=== PATIENT | female | born 1960 | race Caucasian/White ===

== ENCOUNTER → 2018-07-01 | Outpatient (CLI) | payer BC ==
[~2018-07-01] MED LIST: CAL PO; COLACE100 MG PO; HYDROCODON-ACE1 EA12 PO; IBUPROFEN400 MG PO; LEVOTHYROXINE88 MCG PO; MEDROL4 MG/DOSE-; MOBIC7.5 MG PO; MULTIVITAMIN PO; PERCOCET PO; SYNTHROID75 MCG; THERA TEARS PO; [UNRECOGNIZED DRUG - OTHER] PO
--- NOTE | 2018-07-17 09:04 | Diagnostic Imaging Report ---
#[id number] - [id number] #BILATERAL DIGITAL SCREENING MAMMOGRAM WITH CAD: 07/01/2018 CLINICAL: Routine screening. Comparison is made to exams dated: 12/29/2016 mammogram and 11/26/2015 mammogram - [facility]. Current study contains 5 films. The tissue of both breasts is extremely dense, which lowers the sensitivity of mammography. Current study was also evaluated with a Computer Aided Detection (CAD) system. There is a benign calcification in the right breast. No significant masses, calcifications, or other findings are seen in either breast. There has been no significant interval change. IMPRESSION: BENIGN There is no mammographic evidence of malignancy. A 1 year screening mammogram is recommended. The patient will be notified by letter of the results. Jimmy Colmenares Jr., D.O. cw/:07/16/2018 13:05:41 Registered Travel Nurse: Kalyn CHUNG(R)([place]), [facility] letter sent: Compared to Prior B9 Mammogram BI-RADS: 2 Benign
== END ==
LOC: MAMMO 08:06
PROVIDERS: ATTEND Obstetrics & Gynecology
DX: Z12.31 Encounter for screening mammogram for malignant neoplasm of breast (principal)
CPT/HCPCS: 77067

== ENCOUNTER → 2018-08-21 | Outpatient (CLI) | payer BC ==
--- NOTE | 2018-08-21 11:59 | Diagnostic Imaging Report ---
PROCEDURE:HAND BILATERAL 3 OR MORE VIEWS INDICATION:Pain COMPARISON:None. FINDINGS:No fractures or dislocation. There is no evidence of abnormal soft tissue calcification. There are no bony erosions. CONCLUSION:Normal study. Jimmy Colmenares D.O. Dictated by: Jimmy Colmenares D.O. on 08/21/2018 at 12:08 Electronically approved by: Jimmy Colmenares D.O. on 08/21/2018 at 12:08
== END ==
LOC: RAD 08:01
PROVIDERS: ATTEND Internal Medicine Rheumatology
DX: M25.542 Pain in joints of left hand (principal); M25.541 Pain in joints of right hand

== ENCOUNTER → 2019-07-30 | Outpatient (CLI) | payer BC | LOC: MAMMO 16:16 | PROVIDERS: ATTEND Obstetrics & Gynecology | DX: Z12.31 Encounter for screening mammogram for malignant neoplasm of breast (principal) | CPT/HCPCS: 77067 ==

== ENCOUNTER → 2020-08-02 | Outpatient (CLI) | payer BC | LOC: MAMMO 07:49 | PROVIDERS: ATTEND Obstetrics & Gynecology | DX: Z12.31 Encounter for screening mammogram for malignant neoplasm of breast (principal) | CPT/HCPCS: 77067 ==

== ENCOUNTER → 2021-08-08 | Outpatient (CLI) | payer BC | LOC: MAMMO 07:41 | PROVIDERS: ATTEND Obstetrics & Gynecology | DX: Z12.31 Encounter for screening mammogram for malignant neoplasm of breast (principal) | CPT/HCPCS: 77067 ==

== ENCOUNTER → 2022-08-09 | Outpatient (CLI) | payer BC | LOC: MAMMO 07:33 | PROVIDERS: ATTEND Obstetrics & Gynecology | DX: Z12.31 Encounter for screening mammogram for malignant neoplasm of breast (principal) | CPT/HCPCS: 77067 ==

== ENCOUNTER → 2024-08-20 | Outpatient (REF) | payer BC | LOC: MAMMO 07:46 | PROVIDERS: ATTEND Obstetrics & Gynecology | DX: Z12.31 Encounter for screening mammogram for malignant neoplasm of breast (principal) | CPT/HCPCS: 77067 ==

== ENCOUNTER → 2025-03-03 | Outpatient (REF) | payer BC | LOC: DX 14:30 | PROVIDERS: ATTEND Obstetrics & Gynecology | DX: M85.88 Other specified disorders of bone density and structure, other site (principal) | CPT/HCPCS: 77080 ==

== ENCOUNTER 2025-04-02 05:59 | Observation (INO) | payer BC ==
[2025-03-31 16:07] LABS: BASOPHILS % 0.8 % (0.0-1.0); EOSINOPHILS % 0.8 % (0.0-6.0); LYMPHOCYTES % 22.3 % (18.0-39.1); MONOCYTES % 8.7 % (4.4-11.3); NEUTROPHILS % 67.2 % (38.7-80.0); RED CELL DISTRIBUTION WIDTH 12.1 % (11.7-14.4)
[2025-03-31 16:32] LABS: EST GLOMERULAR FILTRATION RATE 62.0 ML/MIN (>=60)
[2025-03-31 16:42] LABS: INR 0.87
[~2025-04-02 05:59] MED LIST changes: +AMLODIPINE BESY10 MG PO; +BIOTIN1 MG PO; +CALCIUM D3 PO; +FLECTOR1 EACH PO; +HELIOCARE240 MG PO; +LYRICA25 MG PO; +MAGNESIUM CITRA PO; +POTASSIUM CITR10 MEQ PO; +WELLBUTRIN XL150 MG PO
[2025-04-02] MEDS ORDERED: ULTRAM 50MG50 MG PO ×2 (07:15→09:09)
[2025-04-02] MEDS ORDERED: PROPOFOL IV EMULSION 10 MG/ML 20 ML VIAL ONE (07:22)
[2025-04-02] MEDS ORDERED: ROCURONIUM BROMIDE 1 ML IV ONE (07:22)
[2025-04-02] MEDS ORDERED: MIDAZOLAM HCL 2 MG/2 ML VIAL ONE (07:22)
[2025-04-02] MEDS ORDERED: ACETAMINOPHEN 1000 MG/100 ML 100 ML IV ONE (07:22)
[2025-04-02] MEDS ORDERED: LIDOCAINE HCL 2% LOCAL INJ 5 ML SDV VIAL INJ ONE (07:22)
[2025-04-02] MEDS ORDERED: FENTANYL CITRATE/PF 100MCG/2 ML INJ ONE (07:22)
[2025-04-02] MEDS ORDERED: SEVOFLURANE INHAL SOLN 250 ML PEN BTL ONE (07:22)
[2025-04-02] MEDS ORDERED: FAMOTIDINE 20 MG/2 ML VIAL IV ONE (07:24)
[2025-04-02] MEDS: CEFAZOLIN SODIUM 2 GM ONE (07:51)
[2025-04-02] MEDS: LACTATED RINGER'S 1,000 ML ONE (07:51)
[2025-04-02] MEDS ORDERED: DEXAMETHASONE SOD PHOS INJ 4 MG/ML SDV ONE (08:46)
[2025-04-02] MEDS ORDERED: SUGAMMADEX SODIUM 200 MG/2 ML VIAL IV ONE (08:46)
[2025-04-02] MEDS ORDERED: EPHEDRINE SULFATE INJ 50 MG/ML VIAL ONE (08:46)
[2025-04-02] MEDS ORDERED: ONDANSETRON HCL INJ 2MG/ML 2ML 2 MG/ML VIAL ONE (08:46)
[2025-04-02] MEDS ORDERED: MAGNESIUM/ALUMINUM/SIMETHICONE 30 ML UDC PO PRN (09:15)
[2025-04-02] MEDS ORDERED: ACETAMINOPHEN 325 MG TAB PO PRN (09:15)
[2025-04-02] MEDS ORDERED: CARISOPRODOL 350 MG TAB PO PRN (09:15)
[2025-04-02] MEDS ORDERED: OXYCODONE/ACETAMINOPHEN 5-325 1 EACH TABLET PO PRN (09:15)
[2025-04-02] MEDS ORDERED: Morphine 2mg Syringe 2 MG/ML SYR IV PRN (09:15)
[2025-04-02] MEDS ORDERED: PROMETHAZINE HCL (IM) 25 MG/ML VIAL IM PRN (09:15)
[2025-04-02] MEDS ORDERED: ONDANSETRON HCL INJ 2MG/ML 2ML 2 MG/ML VIAL IV PRN (09:15)
[2025-04-02] MEDS: FENTANYL CITRATE/PF 100MCG/2 ML INJ ONE (09:25)
[2025-04-02 11:05] VITALS: BP 121/70; PULSE 63; RESP 18; O2SAT 99
[2025-04-02] MEDS ORDERED: LACTATED RINGER'S 1,000 ML IV SCH (14:30)
[2025-04-02] MEDS ORDERED: ZOLPIDEM TARTRATE 5 MG TAB PO PRN (21:00)
== END 2025-04-02 11:30 | disposition home or self-care (01) ==
LOC: OR 05:59 → PACU V 09:07
PROVIDERS: ADMIT Neurological Surgery; ATTEND Neurological Surgery
DX: M51.16 Intervertebral disc disorders with radiculopathy, lumbar region (principal); E03.9 Hypothyroidism, unspecified; I73.00 Raynaud's syndrome without gangrene; Z01.810 Encounter for preprocedural cardiovascular examination; Z01.812 Encounter for preprocedural laboratory examination; Z01.818 Encounter for other preprocedural examination
CPT/HCPCS: 36415; 63047; 71046; 72020; 80048; 85025; 85610; 85730; 86850; 86900; 88304; 88311; 93005; G0378; J0131; J1100; J1308; J2003; J2250; J2405; J2704; J3010; J7121